=== PATIENT | female | born 1935 | race Two or more races ===

== ENCOUNTER 2018-12-16 19:57 | Inpatient (IN) | payer MEDICAID, OTHER ==
[~2018-12-16] VITALS: Ht 160 cm; Wt 69.0 kg
[2018-12-16] MEDS ORDERED: CHOL5000 PO (20:19)
[2018-12-16] MEDS ORDERED: MV-M1TAB3 PO (20:19)
[2018-12-16] MEDS ORDERED: SERT50TA28 PO (20:19)
[2018-12-16] MEDS ORDERED: AMLO10TA8 PO (20:19)
[2018-12-16] MEDS ORDERED: CALC0.25 PO (20:19)
[2018-12-16] MEDS ORDERED: LISI-167 PO (20:19)
[2018-12-16] MEDS ORDERED: ALBU0.63 NEB (20:19)
[2018-12-16] MEDS ORDERED: LEVO100T5 PO (20:19)
[2018-12-16] MEDS ORDERED: GABA300C10 PO (20:19)
[2018-12-16] MEDS ORDERED: DOXY25TA18 PO (20:19)
--- NOTE | 2018-12-16 20:26 | NUR ---
PT DIRECT TRANSFER FROM [facility] ED. FAMILY RPTS INCREASING WEAKNESS AND CONFUSION OVER PAST WEEK. PER CHART REC'D FROM [facility] IMPRESSION +PYELONEPHRITIS, STAGHORN KIDNEY STONES, URITIERAL STONE, RENAL INSUFFICIENCY. PT ON MONITORS, SOPHIA WICK CATHETER PLACED. VSS, ASSESSMENT NOTED. FAMILY AT BEDSIDE. CALL LIGHT W/I REACH. ER MD TO SEE.
[2018-12-16 21:40] LABS: BASOPHILS # (AUTO) 0.03 x10^3/uL (0-0.1); BASOPHILS % (AUTO) 0 % (0-1); EOSINOPHILS # (AUTO) 0.28 x10^3/uL (0-0.4); EOSINOPHILS % (AUTO) 4 % (1-7); LYMPHOCYTES # (AUTO) 2.31 x10^3/uL (1-3.4); LYMPHOCYTES % (AUTO) 34 % (22-44); MD NO; MEAN CORPUSCULAR HEMOGLOBIN 25.8 pg (27.0-34.8); MEAN CORPUSCULAR HGB CONC 31.6 g/dL (32.4-35.8); MEAN CORPUSCULAR VOLUME 81.6 fL (80-100); MEAN PLATELET VOLUME 9.1 fL (7.4-10.4); MONOCYTES # (AUTO) 0.32 x10^3/uL (0.2-0.8); MONOCYTES % (AUTO) 5 % (2-9); NEUTROPHILS % (AUTO) 56 % (42-75); PLATELET COUNT 181 x10^3/uL (130-400); RED BLOOD COUNT 4.07 x10^6/uL (3.82-5.3)
[2018-12-16 21:48] LABS: INTERNATIONAL NORMALIZED RATIO 1.14 (0.93-1.1)
[2018-12-16 21:50] LABS: ALBUMIN 3.3 g/dL (3.4-5.0); ANION GAP 7 mmol/L (5-15); CHLORIDE 112 mmol/L (98-107); CREATININE 1.55 mg/dL (0.55-1.02)
--- NOTE | 2018-12-16 23:25 | NUR ---
smh at bed side
--- NOTE | 2018-12-16 23:27 | NUR ---
daughter(Polina ) phone number #[phone]
--- NOTE | 2018-12-16 23:27 | NUR ---
updated poc to daughter and notified 's hospital rm number [id number]
[2018-12-16] MEDS ORDERED: SODIUM CHLORIDE FLUSH 10ML SYR IVF PRN (23:30)
--- NOTE | 2018-12-16 23:34 | NUR ---
GIVEN REPORT TO PRIETO JUDD AT [facility] FOR ADMIT EVAL NOW
[2018-12-16] MEDS ORDERED: LACTATED RINGERS 1,000 ML IV SCH (23:40)
[2018-12-17] MEDS ORDERED: TEMPLATE NON-FORMULARY MED. (Albuterol Sulfate (Albuterol Sulfate**) 1 VIAL) NEB PRN
[2018-12-17] MEDS ORDERED: ACETAMINOPHEN 325 MG TABLET PO PRN
[2018-12-17] MEDS ORDERED: ONDANSETRON 2MG/ML, 2ML IVPush PRN
[2018-12-17] MEDS: CEFTRIAXONE PMX 1GM/50ML 50 ML IV SCH (00:40)
[2018-12-17 00:41] VITALS: BP 124/66
[2018-12-17 03:48] VITALS: BP 129/67
[2018-12-17 05:24] LABS: BASOPHILS # (AUTO) 0.03 x10^3/uL (0-0.1); BASOPHILS % (AUTO) 1 % (0-1); EOSINOPHILS # (AUTO) 0.26 x10^3/uL (0-0.4); EOSINOPHILS % (AUTO) 4 % (1-7); LYMPHOCYTES # (AUTO) 1.74 x10^3/uL (1-3.4); LYMPHOCYTES % (AUTO) 29 % (22-44); MD NO; MEAN CORPUSCULAR HEMOGLOBIN 26.1 pg (27.0-34.8); MEAN CORPUSCULAR VOLUME 81.6 fL (80-100); MEAN PLATELET VOLUME 8.9 fL (7.4-10.4); MONOCYTES # (AUTO) 0.34 x10^3/uL (0.2-0.8); MONOCYTES % (AUTO) 6 % (2-9); NEUTROPHILS # (AUTO) 3.68 x10^3/uL (1.8-6.8); NEUTROPHILS % (AUTO) 61 % (42-75); PLATELET COUNT 168 x10^3/uL (130-400); RED BLOOD COUNT 3.84 x10^6/uL (3.82-5.3); RED CELL DISTRIBUTION WIDTH 16.7 % (9.6-15.2)
[2018-12-17 05:32] LABS: ANION GAP 5 mmol/L (5-15); CALCIUM 9.1 mg/dL (8.5-10.1); CHLORIDE 114 mmol/L (98-107)
[2018-12-17 05:33] LABS: CREATININE 1.57 mg/dL (0.55-1.02)
[2018-12-17 07:59] VITALS: BP 125/60
[2018-12-17] MEDS: CHOLECALCIFEROL 1,000 UNIT TABLET PO SCH ×2 (08:47→20:45)
[2018-12-17] MEDS: LEVOTHYROXINE 100 MCG TABLET PO SCH (08:47)
[2018-12-17] MEDS: CALCITRIOL 0.25 MCG CAPSULE PO SCH (08:47)
[2018-12-17] MEDS: AMLODIPINE 5 MG TABLET PO SCH (08:47)
[2018-12-17] MEDS: MULTIVITAMIN 1 TABLET PO SCH (08:47)
[2018-12-17] MEDS: SERTRALINE 50MG TABLET PO SCH (08:47)
[2018-12-17 14:17] VITALS: BP 101/66
[2018-12-17] MEDS: ENOXAPARIN 30 MG/0.3 ML SQ SCH (17:38)
[2018-12-17] MEDS ORDERED: ENOXAPARIN 40 MG/0.4 ML SQ SCH (18:00)
[2018-12-17 20:00] VITALS: BP 121/64
[2018-12-17] MEDS: GABAPENTIN 100 MG CAPSULE PO SCH (20:45)
[2018-12-17] MEDS: DOXYLAMINE 25MG TABLET PO SCH (20:45)
[2018-12-18] MEDS: CEFTRIAXONE PMX 1GM/50ML 50 ML IV SCH (00:11)
[2018-12-18 00:14] VITALS: BP 115/75
[2018-12-18] MEDS: LEVOTHYROXINE 100 MCG TABLET PO SCH (06:00)
[2018-12-18 06:14] LABS: ANION GAP 7 mmol/L (5-15); CALCIUM 9.2 mg/dL (8.5-10.1); CHLORIDE 113 mmol/L (98-107); CREATININE 1.86 mg/dL (0.55-1.02)
[2018-12-18 06:27] LABS: BASOPHILS # (AUTO) 0.04 x10^3/uL (0-0.1); BASOPHILS % (AUTO) 1 % (0-1); EOSINOPHILS # (AUTO) 0.43 x10^3/uL (0-0.4); EOSINOPHILS % (AUTO) 6 % (1-7); LYMPHOCYTES # (AUTO) 2.35 x10^3/uL (1-3.4); LYMPHOCYTES % (AUTO) 34 % (22-44); MD NO; MEAN CORPUSCULAR HEMOGLOBIN 25.9 pg (27.0-34.8); MEAN CORPUSCULAR VOLUME 80.8 fL (80-100); MEAN PLATELET VOLUME 9.4 fL (7.4-10.4); MONOCYTES # (AUTO) 0.44 x10^3/uL (0.2-0.8); MONOCYTES % (AUTO) 6 % (2-9); NEUTROPHILS # (AUTO) 3.67 x10^3/uL (1.8-6.8); NEUTROPHILS % (AUTO) 53 % (42-75); PLATELET COUNT 151 x10^3/uL (130-400); RED BLOOD COUNT 4.18 x10^6/uL (3.82-5.3); RED CELL DISTRIBUTION WIDTH 16.6 % (9.6-15.2)
[2018-12-18 06:50] VITALS: BP 127/79
[2018-12-18] MEDS ORDERED: ONDANSETRON 2MG/ML, 2ML IV PRN (09:00)
[2018-12-18] MEDS ORDERED: MORPHINE SULFATE 4 MG/ML, 1ML IVPush PRN (09:00)
[2018-12-18] MEDS ORDERED: LABETALOL 5MG/ML, 20ML IV PRN (09:00)
[2018-12-18] MEDS ORDERED: FENTANYL PF 100 MCG/2ML IV PRN (09:00)
[2018-12-18] MEDS ORDERED: ACETAMINOPHEN 325 MG TABLET PO PRN (09:00)
[2018-12-18] MEDS ORDERED: METOCLOPRAMIDE 5 MG/ML, 2ML IV PRN (09:00)
[2018-12-18] MEDS ORDERED: OXYcodone 5 MG/5 ML ORAL.SOL UDC PO PRN (09:00)
[2018-12-18] MEDS ORDERED: hydrALAzine 20 MG/ML, 1ML IV PRN (09:00)
[2018-12-18] MEDS ORDERED: DEXAMETHASONE 4 MG/ML, 1ML ONE (09:15)
[2018-12-18] MEDS ORDERED: NEOSTIGMINE 1 MG/ML, 10ML ONE (09:15)
[2018-12-18] MEDS ORDERED: ROCURONIUM 10 MG/ML,10ML ONE (09:15)
[2018-12-18] MEDS ORDERED: ONDANSETRON 2MG/ML, 2ML ONE (09:15)
[2018-12-18] MEDS ORDERED: PROPOFOL 10 MG/ML, 20ML ONE (09:15)
[2018-12-18] MEDS: SERTRALINE 50MG TABLET PO SCH (13:35)
[2018-12-18] MEDS: CALCITRIOL 0.25 MCG CAPSULE PO SCH (13:35)
[2018-12-18] MEDS: MULTIVITAMIN 1 TABLET PO SCH (13:35)
[2018-12-18] MEDS: CHOLECALCIFEROL 1,000 UNIT TABLET PO SCH ×2 (13:35→21:26)
[2018-12-18] MEDS: AMLODIPINE 5 MG TABLET PO SCH (13:36)
[2018-12-18 14:28] VITALS: BP 96/54
[2018-12-18 16:30] LABS: CULTURE INDICATED? YES; MICROSCOPIC INDICATED
[2018-12-18 17:59] VITALS: BP 98/55
[2018-12-18] MEDS: ENOXAPARIN 30 MG/0.3 ML SQ SCH (18:00)
[2018-12-18 21:03] VITALS: BP 96/63
[2018-12-18] MEDS: GABAPENTIN 100 MG CAPSULE PO SCH (21:26)
[2018-12-18] MEDS: DOXYLAMINE 25MG TABLET PO SCH (21:26)
[2018-12-18 21:58] VITALS: BP 190/100
[2018-12-19] MEDS: CEFTRIAXONE PMX 1GM/50ML 50 ML IV SCH ×2 (00:09→23:49)
[2018-12-19 00:47] VITALS: BP 98/59
[2018-12-19 06:06] LABS: MEAN CORPUSCULAR HEMOGLOBIN 26.2 pg (27.0-34.8); MEAN CORPUSCULAR HGB CONC 32.5 g/dL (32.4-35.8); MEAN CORPUSCULAR VOLUME 80.6 fL (80-100); MEAN PLATELET VOLUME 10.3 fL (7.4-10.4); PLATELET COUNT 149 x10^3/uL (130-400); RED BLOOD COUNT 3.53 x10^6/uL (3.82-5.3); RED CELL DISTRIBUTION WIDTH 16.6 % (9.6-15.2)
[2018-12-19 06:13] LABS: CHLORIDE 111 mmol/L (98-107)
[2018-12-19 06:17] LABS: ANION GAP 9 mmol/L (5-15); CALCIUM 9.1 mg/dL (8.5-10.1); CREATININE 1.77 mg/dL (0.55-1.02)
[2018-12-19 06:41] LABS: BASOPHILS # (AUTO) 0.07 x10^3/uL (0-0.1); BASOPHILS % (AUTO) 1 % (0-1); EOSINOPHILS # (AUTO) 0.03 x10^3/uL (0-0.4); EOSINOPHILS % (AUTO) 0 % (1-7); LYMPHOCYTES # (AUTO) 1.44 x10^3/uL (1-3.4); LYMPHOCYTES % (AUTO) 21 % (22-44); MD SCAN; MONOCYTES # (AUTO) 0.35 x10^3/uL (0.2-0.8); MONOCYTES % (AUTO) 5 % (2-9); NEUTROPHILS # (AUTO) 5.02 x10^3/uL (1.8-6.8); NEUTROPHILS % (AUTO) 73 % (42-75)
[2018-12-19 08:00] VITALS: BP 98/60
[2018-12-19] MEDS: AMLODIPINE 5 MG TABLET PO SCH (09:00)
[2018-12-19] MEDS: MULTIVITAMIN 1 TABLET PO SCH (10:27)
[2018-12-19] MEDS: CALCITRIOL 0.25 MCG CAPSULE PO SCH (10:27)
[2018-12-19] MEDS: SERTRALINE 50MG TABLET PO SCH (10:28)
[2018-12-19] MEDS: CHOLECALCIFEROL 1,000 UNIT TABLET PO SCH ×2 (10:28→21:35)
[2018-12-19] MEDS: LEVOTHYROXINE 100 MCG TABLET PO SCH (10:28)
[2018-12-19 18:07] VITALS: BP 112/70
[2018-12-19] MEDS: ENOXAPARIN 30 MG/0.3 ML SQ SCH (18:18)
[2018-12-19 19:42] VITALS: BP 95/57
[2018-12-19] MEDS: DOXYLAMINE 25MG TABLET PO SCH (21:35)
[2018-12-19] MEDS: GABAPENTIN 100 MG CAPSULE PO SCH (21:35)
[2018-12-20 00:24] VITALS: BP 98/62
[2018-12-20 04:56] LABS: ALBUMIN 2.9 g/dL (3.4-5.0); CHLORIDE 109 mmol/L (98-107); CREATININE 1.63 mg/dL (0.55-1.02)
[2018-12-20 05:40] LABS: ANION GAP 10 mmol/L (5-15)
[2018-12-20] MEDS: SERTRALINE 50MG TABLET PO SCH (08:25)
[2018-12-20] MEDS: LEVOTHYROXINE 100 MCG TABLET PO SCH (08:25)
[2018-12-20] MEDS: CHOLECALCIFEROL 1,000 UNIT TABLET PO SCH ×2 (08:25→20:26)
[2018-12-20] MEDS: MULTIVITAMIN 1 TABLET PO SCH (08:25)
[2018-12-20] MEDS: CALCITRIOL 0.25 MCG CAPSULE PO SCH (08:25)
[2018-12-20] MEDS: AMLODIPINE 5 MG TABLET PO SCH (08:25)
[2018-12-20 09:12] VITALS: BP 112/66
[2018-12-20 10:57] VITALS: BP 103/68
[2018-12-20 12:19] VITALS: BP 104/63
[2018-12-20] MEDS: SODIUM CHLORIDE 0.9% 1,000 ML IV SCH (14:14)
[2018-12-20] MEDS: ENOXAPARIN 30 MG/0.3 ML SQ SCH (17:19)
[2018-12-20] MEDS: DOCUSATE 100 MG CAPSULE PO PRN (20:25)
[2018-12-20] MEDS: GABAPENTIN 100 MG CAPSULE PO SCH (20:26)
[2018-12-20] MEDS: DOXYLAMINE 25MG TABLET PO SCH (20:26)
[2018-12-20 21:00] VITALS: BP 103/68
[2018-12-21 00:42] VITALS: BP 97/58
[2018-12-21] MEDS: CEFTRIAXONE PMX 1GM/50ML 50 ML IV SCH (00:54)
[2018-12-21 01:36] VITALS: BP 97/58
[2018-12-21 06:43] LABS: ALBUMIN 2.7 g/dL (3.4-5.0); ANION GAP 8 mmol/L (5-15); CALCIUM 8.5 mg/dL (8.5-10.1); CHLORIDE 106 mmol/L (98-107)
[2018-12-21 06:46] LABS: ALANINE AMINOTRANSFERASE 63 U/L (12-78); ALKALINE PHOSPHATASE 55 U/L (45-117); BILIRUBIN,TOTAL 0.2 mg/dL (0.2-1.0); TOTAL PROTEIN 5.8 g/dL (6.4-8.2)
[2018-12-21 07:48] VITALS: BP 107/69
[2018-12-21] MEDS: MULTIVITAMIN 1 TABLET PO SCH (09:03)
[2018-12-21] MEDS: CHOLECALCIFEROL 1,000 UNIT TABLET PO SCH ×2 (09:03→20:37)
[2018-12-21] MEDS: SERTRALINE 50MG TABLET PO SCH (09:06)
[2018-12-21] MEDS: AMLODIPINE 5 MG TABLET PO SCH (09:06)
[2018-12-21] MEDS: LEVOTHYROXINE 100 MCG TABLET PO SCH (09:06)
[2018-12-21] MEDS: CALCITRIOL 0.25 MCG CAPSULE PO SCH (09:06)
[2018-12-21] MEDS: SODIUM CHLORIDE 0.9% 1,000 ML IV SCH (09:07)
[2018-12-21] MEDS ORDERED: FENTANYL PF 250 MCG/5ML ONE (16:21)
[2018-12-21] MEDS ORDERED: PROPOFOL 10 MG/ML, 20ML ONE (16:31)
[2018-12-21] MEDS ORDERED: ONDANSETRON 2MG/ML, 2ML ONE (16:31)
[2018-12-21] MEDS ORDERED: PROMETHAZINE 25 MG SUPP PR PRN (17:00)
[2018-12-21] MEDS ORDERED: PROMETHAZINE 12.5 MG SUPP PR PRN (17:00)
[2018-12-21] MEDS ORDERED: PROMETHAZINE 25 MG/ML, 1ML IV PRN (17:00)
[2018-12-21] MEDS ORDERED: EPHEDRINE 50 MG/ML, 1ML IM PRN (17:00)
[2018-12-21] MEDS ORDERED: MIDAZOLAM 1 MG/ML, 2ML IV PRN (17:00)
[2018-12-21] MEDS ORDERED: FENTANYL PF 100 MCG/2ML IV PRN (17:00)
[2018-12-21] MEDS ORDERED: MORPHINE SULFATE 4 MG/ML, 1ML IVPush PRN (17:00)
[2018-12-21] MEDS ORDERED: ONDANSETRON 2MG/ML, 2ML IV PRN (17:00)
[2018-12-21] MEDS ORDERED: OXYcodone 5 MG/5 ML ORAL.SOL UDC PO PRN (17:00)
[2018-12-21] MEDS ORDERED: OXYcodone 5 MG/5 ML ORAL.SOL UDC ONE (17:48)
[2018-12-21 20:26] VITALS: BP 113/76
[2018-12-21] MEDS: ENOXAPARIN 30 MG/0.3 ML SQ SCH (20:27)
[2018-12-21] MEDS: GABAPENTIN 100 MG CAPSULE PO SCH (20:37)
[2018-12-21] MEDS: DOXYLAMINE 25MG TABLET PO SCH (20:37)
[2018-12-22] MEDS: CEFTRIAXONE PMX 1GM/50ML 50 ML IV SCH (00:40)
[2018-12-22 01:14] VITALS: BP 100/64
[2018-12-22] MEDS: SODIUM CHLORIDE 0.9% 1,000 ML IV SCH ×2 (04:02→17:55)
[2018-12-22 04:19] VITALS: BP 107/65
[2018-12-22 06:49] VITALS: BP 101/64
[2018-12-22 08:41] LABS: ALBUMIN 2.6 g/dL (3.4-5.0); ANION GAP 5 mmol/L (5-15); CALCIUM 8.4 mg/dL (8.5-10.1); CHLORIDE 109 mmol/L (98-107); CREATININE 1.25 mg/dL (0.55-1.02)
[2018-12-22] MEDS: CHOLECALCIFEROL 1,000 UNIT TABLET PO SCH ×2 (08:41→20:42)
[2018-12-22] MEDS: SERTRALINE 50MG TABLET PO SCH (08:41)
[2018-12-22] MEDS: CALCITRIOL 0.25 MCG CAPSULE PO SCH (08:41)
[2018-12-22] MEDS: MULTIVITAMIN 1 TABLET PO SCH (08:41)
[2018-12-22] MEDS: LEVOTHYROXINE 100 MCG TABLET PO SCH (08:41)
[2018-12-22 09:34] LABS: BASOPHILS # (AUTO) 0.04 x10^3/uL (0-0.1); BASOPHILS % (AUTO) 1 % (0-1); EOSINOPHILS # (AUTO) 0.29 x10^3/uL (0-0.4); EOSINOPHILS % (AUTO) 5 % (1-7); LYMPHOCYTES # (AUTO) 1.75 x10^3/uL (1-3.4); LYMPHOCYTES % (AUTO) 30 % (22-44); MD NO; MEAN CORPUSCULAR HEMOGLOBIN 25.4 pg (27.0-34.8); MEAN CORPUSCULAR HGB CONC 30.9 g/dL (32.4-35.8); MEAN PLATELET VOLUME 10.7 fL (7.4-10.4); MONOCYTES # (AUTO) 0.43 x10^3/uL (0.2-0.8); MONOCYTES % (AUTO) 7 % (2-9); NEUTROPHILS # (AUTO) 3.32 x10^3/uL (1.8-6.8); NEUTROPHILS % (AUTO) 57 % (42-75); PLATELET COUNT 164 x10^3/uL (130-400); RED BLOOD COUNT 3.76 x10^6/uL (3.82-5.3); RED CELL DISTRIBUTION WIDTH 16.5 % (9.6-15.2)
[2018-12-22 12:56] VITALS: BP 108/69
[2018-12-22] MEDS: ENOXAPARIN 30 MG/0.3 ML SQ SCH (17:52)
[2018-12-22] MEDS: GABAPENTIN 100 MG CAPSULE PO SCH (20:42)
[2018-12-22] MEDS: DOXYLAMINE 25MG TABLET PO SCH (20:42)
[2018-12-22 22:45] VITALS: BP 115/67
[2018-12-23] MEDS: CEFTRIAXONE PMX 1GM/50ML 50 ML IV SCH ×2 (00:32→23:56)
[2018-12-23 03:25] VITALS: BP 106/71
[2018-12-23 06:08] LABS: BASOPHILS # (AUTO) 0.03 x10^3/uL (0-0.1); BASOPHILS % (AUTO) 1 % (0-1); EOSINOPHILS # (AUTO) 0.26 x10^3/uL (0-0.4); EOSINOPHILS % (AUTO) 5 % (1-7); LYMPHOCYTES # (AUTO) 1.78 x10^3/uL (1-3.4); LYMPHOCYTES % (AUTO) 34 % (22-44); MD NO; MEAN CORPUSCULAR HEMOGLOBIN 26.5 pg (27.0-34.8); MEAN CORPUSCULAR HGB CONC 32.4 g/dL (32.4-35.8); MEAN CORPUSCULAR VOLUME 81.7 fL (80-100); MEAN PLATELET VOLUME 9.8 fL (7.4-10.4); MONOCYTES # (AUTO) 0.36 x10^3/uL (0.2-0.8); MONOCYTES % (AUTO) 7 % (2-9); NEUTROPHILS # (AUTO) 2.83 x10^3/uL (1.8-6.8); NEUTROPHILS % (AUTO) 54 % (42-75); PLATELET COUNT 168 x10^3/uL (130-400); RED BLOOD COUNT 3.38 x10^6/uL (3.82-5.3); RED CELL DISTRIBUTION WIDTH 16.8 % (9.6-15.2)
[2018-12-23 06:21] LABS: ALBUMIN 2.4 g/dL (3.4-5.0); ANION GAP 6 mmol/L (5-15); CALCIUM 8.2 mg/dL (8.5-10.1); CHLORIDE 110 mmol/L (98-107); CREATININE 1.15 mg/dL (0.55-1.02)
[2018-12-23 07:46] VITALS: BP 115/62
[2018-12-23] MEDS: SERTRALINE 50MG TABLET PO SCH (10:16)
[2018-12-23] MEDS: MULTIVITAMIN 1 TABLET PO SCH (10:16)
[2018-12-23] MEDS: LEVOTHYROXINE 100 MCG TABLET PO SCH (10:16)
[2018-12-23] MEDS: CALCITRIOL 0.25 MCG CAPSULE PO SCH (10:16)
[2018-12-23] MEDS: SODIUM CHLORIDE 0.9% 1,000 ML IV SCH (10:17)
[2018-12-23] MEDS: CHOLECALCIFEROL 1,000 UNIT TABLET PO SCH ×2 (10:17→20:28)
[2018-12-23] MEDS: DOCUSATE 100 MG CAPSULE PO PRN (10:23)
[2018-12-23 14:02] VITALS: BP 115/73
--- NOTE | 2018-12-23 16:56 | NUR ---
Green activity sheet posted recommending pt be transferred to chair OR be in chair position in bed 3x/day. Violetta MOREAU, magali. Addendum: 12/23/18 at 1656 by Billy Haddad PT Amended: Links added.
[2018-12-23] MEDS: ENOXAPARIN 40 MG/0.4 ML SQ SCH (18:00)
[2018-12-23 20:00] VITALS: BP 157/82
[2018-12-23] MEDS: GABAPENTIN 100 MG CAPSULE PO SCH (20:28)
[2018-12-23] MEDS: DOXYLAMINE 25MG TABLET PO SCH (20:28)
[2018-12-24 02:42] VITALS: BP 127/73
[2018-12-24] MEDS: SODIUM CHLORIDE 0.9% 1,000 ML IV SCH ×2 (04:23→18:20)
[2018-12-24 05:58] LABS: BASOPHILS # (AUTO) 0.04 x10^3/uL (0-0.1); BASOPHILS % (AUTO) 1 % (0-1); EOSINOPHILS # (AUTO) 0.28 x10^3/uL (0-0.4); EOSINOPHILS % (AUTO) 6 % (1-7); LYMPHOCYTES # (AUTO) 1.73 x10^3/uL (1-3.4); LYMPHOCYTES % (AUTO) 35 % (22-44); MD NO; MEAN CORPUSCULAR HEMOGLOBIN 26.4 pg (27.0-34.8); MEAN CORPUSCULAR HGB CONC 32.5 g/dL (32.4-35.8); MEAN CORPUSCULAR VOLUME 81.3 fL (80-100); MEAN PLATELET VOLUME 9.5 fL (7.4-10.4); MONOCYTES # (AUTO) 0.36 x10^3/uL (0.2-0.8); MONOCYTES % (AUTO) 7 % (2-9); NEUTROPHILS # (AUTO) 2.52 x10^3/uL (1.8-6.8); NEUTROPHILS % (AUTO) 51 % (42-75); PLATELET COUNT 171 x10^3/uL (130-400); RED BLOOD COUNT 3.41 x10^6/uL (3.82-5.3)
[2018-12-24 06:03] LABS: ALBUMIN 2.6 g/dL (3.4-5.0); ANION GAP 4 mmol/L (5-15); CALCIUM 8.4 mg/dL (8.5-10.1); CHLORIDE 110 mmol/L (98-107); CREATININE 1.13 mg/dL (0.55-1.02)
[2018-12-24 08:00] VITALS: BP 117/74
[2018-12-24] MEDS: MULTIVITAMIN 1 TABLET PO SCH (09:00)
[2018-12-24] MEDS: CHOLECALCIFEROL 1,000 UNIT TABLET PO SCH ×2 (09:39→20:13)
[2018-12-24] MEDS: CALCITRIOL 0.25 MCG CAPSULE PO SCH (09:39)
[2018-12-24] MEDS: SERTRALINE 50MG TABLET PO SCH (09:39)
[2018-12-24] MEDS: LEVOTHYROXINE 100 MCG TABLET PO SCH (09:39)
[2018-12-24 12:00] VITALS: BP 121/77
[2018-12-24] MEDS: ENOXAPARIN 40 MG/0.4 ML SQ SCH (18:00)
[2018-12-24 19:09] VITALS: BP 126/73
[2018-12-24] MEDS: DOXYLAMINE 25MG TABLET PO SCH (20:13)
[2018-12-24] MEDS: GABAPENTIN 100 MG CAPSULE PO SCH (20:21)
[2018-12-24] MEDS: CEFTRIAXONE PMX 1GM/50ML 50 ML IV SCH (23:41)
[2018-12-25 01:46] VITALS: BP 149/76
[2018-12-25 07:51] VITALS: BP 127/77
[2018-12-25] MEDS: LEVOTHYROXINE 100 MCG TABLET PO SCH (08:26)
[2018-12-25] MEDS: CHOLECALCIFEROL 1,000 UNIT TABLET PO SCH ×2 (08:26→20:34)
[2018-12-25] MEDS: SODIUM CHLORIDE 0.9% 1,000 ML IV SCH ×2 (08:26→20:36)
[2018-12-25] MEDS: MULTIVITAMIN 1 TABLET PO SCH (08:26)
[2018-12-25] MEDS: CALCITRIOL 0.25 MCG CAPSULE PO SCH (08:26)
[2018-12-25] MEDS: SERTRALINE 50MG TABLET PO SCH (08:27)
[2018-12-25 13:31] VITALS: BP 140/65
[2018-12-25] MEDS: ENOXAPARIN 40 MG/0.4 ML SQ SCH (17:40)
[2018-12-25] MEDS: GABAPENTIN 100 MG CAPSULE PO SCH (20:34)
[2018-12-25] MEDS: DOXYLAMINE 25MG TABLET PO SCH (20:34)
[2018-12-25 21:12] VITALS: BP 148/81
[2018-12-26] MEDS: CEFTRIAXONE PMX 1GM/50ML 50 ML IV SCH (00:36)
[2018-12-26 01:30] VITALS: BP 126/77
[2018-12-26 07:03] VITALS: BP 147/80
[2018-12-26] MEDS: CALCITRIOL 0.25 MCG CAPSULE PO SCH (09:02)
[2018-12-26] MEDS: CHOLECALCIFEROL 1,000 UNIT TABLET PO SCH ×2 (09:03→19:58)
[2018-12-26] MEDS: MULTIVITAMIN 1 TABLET PO SCH (09:03)
[2018-12-26] MEDS: LEVOTHYROXINE 100 MCG TABLET PO SCH (09:04)
[2018-12-26] MEDS: SERTRALINE 50MG TABLET PO SCH (09:05)
[2018-12-26] MEDS: SODIUM CHLORIDE 0.9% 1,000 ML IV SCH (09:05)
[2018-12-26 12:22] VITALS: BP 131/80
[2018-12-26] MEDS: DOCUSATE 100 MG CAPSULE PO PRN (14:17)
[2018-12-26] MEDS: D5%-0.9% NACL 1,000 ML IV SCH (14:18)
[2018-12-26] MEDS: ENOXAPARIN 40 MG/0.4 ML SQ SCH (18:29)
[2018-12-26] MEDS: DOXYLAMINE 25MG TABLET PO SCH (19:58)
[2018-12-26] MEDS: GABAPENTIN 100 MG CAPSULE PO SCH (19:59)
[2018-12-26 20:10] VITALS: BP 149/82
[2018-12-27 00:45] VITALS: BP 130/75
[2018-12-27] MEDS: D5%-0.9% NACL 1,000 ML IV SCH ×2 (03:50→16:43)
[2018-12-27 04:30] LABS: BASOPHILS # (AUTO) 0.04 x10^3/uL (0-0.1); BASOPHILS % (AUTO) 1 % (0-1); EOSINOPHILS # (AUTO) 0.31 x10^3/uL (0-0.4); EOSINOPHILS % (AUTO) 6 % (1-7); LYMPHOCYTES # (AUTO) 2.12 x10^3/uL (1-3.4); LYMPHOCYTES % (AUTO) 42 % (22-44); MD NO; MEAN CORPUSCULAR HEMOGLOBIN 26.3 pg (27.0-34.8); MEAN CORPUSCULAR HGB CONC 31.9 g/dL (32.4-35.8); MEAN CORPUSCULAR VOLUME 82.5 fL (80-100); MEAN PLATELET VOLUME 9.7 fL (7.4-10.4); MONOCYTES # (AUTO) 0.37 x10^3/uL (0.2-0.8); MONOCYTES % (AUTO) 7 % (2-9); NEUTROPHILS # (AUTO) 2.25 x10^3/uL (1.8-6.8); NEUTROPHILS % (AUTO) 44 % (42-75); PLATELET COUNT 180 x10^3/uL (130-400); RED BLOOD COUNT 3.57 x10^6/uL (3.82-5.3); RED CELL DISTRIBUTION WIDTH 17.3 % (9.6-15.2)
[2018-12-27 04:37] LABS: ALBUMIN 2.6 g/dL (3.4-5.0); ANION GAP 5 mmol/L (5-15); CALCIUM 8.5 mg/dL (8.5-10.1); CHLORIDE 113 mmol/L (98-107); CREATININE 1.11 mg/dL (0.55-1.02)
[2018-12-27] MEDS ORDERED: MAGNESIUM SULFATE PMX 2GM/50ML 50 ML IV ONE (05:30)
[2018-12-27] MEDS: CALCITRIOL 0.25 MCG CAPSULE PO SCH (08:10)
[2018-12-27] MEDS: MULTIVITAMIN 1 TABLET PO SCH (08:10)
[2018-12-27] MEDS: CHOLECALCIFEROL 1,000 UNIT TABLET PO SCH ×2 (08:10→21:18)
[2018-12-27] MEDS: SERTRALINE 50MG TABLET PO SCH (08:10)
[2018-12-27] MEDS: LEVOTHYROXINE 100 MCG TABLET PO SCH (08:10)
[2018-12-27] MEDS: POTASSIUM CHLORIDE 20 MEQ TAB.ER.PRT PO SCH ×2 (08:10→16:41)
[2018-12-27 09:10] VITALS: BP 154/75
[2018-12-27 12:10] VITALS: BP 134/83
[2018-12-27] MEDS: ENOXAPARIN 40 MG/0.4 ML SQ SCH (16:44)
[2018-12-27 18:57] VITALS: BP 160/75
[2018-12-27] MEDS: GABAPENTIN 100 MG CAPSULE PO SCH (21:18)
[2018-12-27] MEDS: DOXYLAMINE 25MG TABLET PO SCH (21:19)
[2018-12-28 00:20] VITALS: BP 153/71
[2018-12-28] MEDS: D5%-0.9% NACL 1,000 ML IV SCH ×2 (06:40→19:52)
[2018-12-28 08:00] VITALS: BP 156/84
[2018-12-28] MEDS: CHOLECALCIFEROL 1,000 UNIT TABLET PO SCH ×2 (08:25→21:28)
[2018-12-28] MEDS: LEVOTHYROXINE 100 MCG TABLET PO SCH (08:25)
[2018-12-28] MEDS: SERTRALINE 50MG TABLET PO SCH (08:25)
[2018-12-28] MEDS: CALCITRIOL 0.25 MCG CAPSULE PO SCH (08:25)
[2018-12-28] MEDS: MULTIVITAMIN 1 TABLET PO SCH (08:25)
[2018-12-28 14:00] VITALS: BP 173/82
[2018-12-28 17:30] VITALS: BP 142/70
[2018-12-28 19:32] VITALS: BP 162/80
[2018-12-28] MEDS: GABAPENTIN 100 MG CAPSULE PO SCH (21:27)
[2018-12-28] MEDS: DOXYLAMINE 25MG TABLET PO SCH (21:36)
[2018-12-29 00:12] VITALS: BP 133/75
[2018-12-29 08:02] VITALS: BP 133/83
[2018-12-29] MEDS: SERTRALINE 50MG TABLET PO SCH (09:38)
[2018-12-29] MEDS: LEVOTHYROXINE 100 MCG TABLET PO SCH (09:39)
[2018-12-29] MEDS: MULTIVITAMIN 1 TABLET PO SCH (09:39)
[2018-12-29] MEDS: CALCITRIOL 0.25 MCG CAPSULE PO SCH (09:40)
[2018-12-29] MEDS: CHOLECALCIFEROL 1,000 UNIT TABLET PO SCH ×2 (09:40→20:08)
[2018-12-29 12:06] VITALS: BP 154/91
[2018-12-29 19:10] VITALS: BP 152/78
[2018-12-29] MEDS: GABAPENTIN 100 MG CAPSULE PO SCH (20:09)
[2018-12-29] MEDS: DOXYLAMINE 25MG TABLET PO SCH (20:09)
[2018-12-30 00:01] VITALS: BP 145/84
[2018-12-30 08:06] VITALS: BP 113/74
[2018-12-30] MEDS: DOCUSATE 100 MG CAPSULE PO PRN (08:30)
[2018-12-30] MEDS: CALCITRIOL 0.25 MCG CAPSULE PO SCH (08:30)
[2018-12-30] MEDS: SERTRALINE 50MG TABLET PO SCH (08:30)
[2018-12-30] MEDS: LEVOTHYROXINE 100 MCG TABLET PO SCH (08:33)
[2018-12-30] MEDS: MULTIVITAMIN 1 TABLET PO SCH (08:33)
[2018-12-30] MEDS: CHOLECALCIFEROL 1,000 UNIT TABLET PO SCH ×2 (08:33→20:53)
[2018-12-30 13:58] VITALS: BP 118/78
[2018-12-30 19:32] VITALS: BP 98/66
[2018-12-30] MEDS: DOXYLAMINE 25MG TABLET PO SCH (20:53)
[2018-12-30] MEDS: GABAPENTIN 100 MG CAPSULE PO SCH (20:53)
[2018-12-31 00:19] VITALS: BP 119/80
[2018-12-31 05:35] LABS: BASOPHILS # (AUTO) 0.02 x10^3/uL (0-0.1); BASOPHILS % (AUTO) 0 % (0-1); EOSINOPHILS # (AUTO) 0.41 x10^3/uL (0-0.4); EOSINOPHILS % (AUTO) 7 % (1-7); LYMPHOCYTES # (AUTO) 2.07 x10^3/uL (1-3.4); LYMPHOCYTES % (AUTO) 36 % (22-44); MD NO; MEAN CORPUSCULAR HEMOGLOBIN 25.5 pg (27.0-34.8); MEAN CORPUSCULAR HGB CONC 31.5 g/dL (32.4-35.8); MEAN CORPUSCULAR VOLUME 80.9 fL (80-100); MEAN PLATELET VOLUME 9.3 fL (7.4-10.4); MONOCYTES # (AUTO) 0.41 x10^3/uL (0.2-0.8); MONOCYTES % (AUTO) 7 % (2-9); NEUTROPHILS # (AUTO) 2.84 x10^3/uL (1.8-6.8); NEUTROPHILS % (AUTO) 50 % (42-75); PLATELET COUNT 203 x10^3/uL (130-400); RED BLOOD COUNT 3.87 x10^6/uL (3.82-5.3)
[2018-12-31 05:45] LABS: ANION GAP 8 mmol/L (5-15); CALCIUM 9.6 mg/dL (8.5-10.1); CHLORIDE 108 mmol/L (98-107)
[2018-12-31 05:46] LABS: CREATININE 1.63 mg/dL (0.55-1.02)
[2018-12-31 07:51] VITALS: BP 110/71
[2018-12-31] MEDS: SERTRALINE 50MG TABLET PO SCH (08:13)
[2018-12-31] MEDS: MULTIVITAMIN 1 TABLET PO SCH (08:13)
[2018-12-31] MEDS: CALCITRIOL 0.25 MCG CAPSULE PO SCH (08:13)
[2018-12-31] MEDS: CHOLECALCIFEROL 1,000 UNIT TABLET PO SCH ×2 (08:13→22:00)
[2018-12-31] MEDS: LEVOTHYROXINE 100 MCG TABLET PO SCH (08:14)
[2018-12-31] MEDS: SODIUM CHLORIDE 0.9% 1,000 ML IV SCH ×2 (09:00→23:14)
[2018-12-31 13:57] VITALS: BP 113/80
[2018-12-31 19:34] VITALS: BP 118/76
[2018-12-31] MEDS: DOXYLAMINE 25MG TABLET PO SCH (22:00)
[2018-12-31] MEDS: GABAPENTIN 100 MG CAPSULE PO SCH (22:00)
[2018-12-31 23:55] LABS: ANION GAP 10 mmol/L (5-15); CALCIUM 9.5 mg/dL (8.5-10.1); CHLORIDE 107 mmol/L (98-107); CREATININE 1.89 mg/dL (0.55-1.02)
[2019-01-01 01:07] VITALS: BP 100/61
[2019-01-01] MEDS: LEVOTHYROXINE 100 MCG TABLET PO SCH (06:04)
[2019-01-01 06:19] LABS: ALBUMIN 2.9 g/dL (3.4-5.0); ANION GAP 7 mmol/L (5-15); CALCIUM 9.5 mg/dL (8.5-10.1); CHLORIDE 111 mmol/L (98-107); CREATININE 1.71 mg/dL (0.55-1.02)
[2019-01-01] MEDS: SODIUM CHLORIDE 0.9% 1,000 ML IV SCH ×2 (07:40→18:49)
[2019-01-01] MEDS: MULTIVITAMIN 1 TABLET PO SCH (07:42)
[2019-01-01] MEDS: SERTRALINE 50MG TABLET PO SCH (07:42)
[2019-01-01] MEDS: CALCITRIOL 0.25 MCG CAPSULE PO SCH (07:42)
[2019-01-01] MEDS: CHOLECALCIFEROL 1,000 UNIT TABLET PO SCH ×2 (07:43→20:49)
[2019-01-01 08:00] VITALS: BP 113/74
[2019-01-01 14:00] VITALS: BP 116/63
[2019-01-01 16:19] LABS: MICROSCOPIC INDICATED
[2019-01-01 16:59] LABS: CULTURE INDICATED? YES
[2019-01-01 19:12] VITALS: BP 157/80
[2019-01-01] MEDS: CEFTRIAXONE PMX 1GM/50ML 50 ML IV SCH (20:49)
[2019-01-01] MEDS: GABAPENTIN 100 MG CAPSULE PO SCH (20:49)
[2019-01-01] MEDS: DOXYLAMINE 25MG TABLET PO SCH (20:49)
[2019-01-02 01:17] VITALS: BP 112/71
[2019-01-02] MEDS: SODIUM CHLORIDE 0.9% 1,000 ML IV SCH ×2 (06:02→17:29)
[2019-01-02 06:22] LABS: ALBUMIN 2.7 g/dL (3.4-5.0); ANION GAP 6 mmol/L (5-15); CALCIUM 9.3 mg/dL (8.5-10.1); CHLORIDE 113 mmol/L (98-107); CREATININE 1.41 mg/dL (0.55-1.02)
[2019-01-02 08:10] VITALS: BP 146/81
[2019-01-02] MEDS: LEVOTHYROXINE 100 MCG TABLET PO SCH (10:19)
[2019-01-02] MEDS: MULTIVITAMIN 1 TABLET PO SCH (10:19)
[2019-01-02] MEDS: CALCITRIOL 0.25 MCG CAPSULE PO SCH (10:19)
[2019-01-02] MEDS: SERTRALINE 50MG TABLET PO SCH (10:20)
[2019-01-02] MEDS: CHOLECALCIFEROL 1,000 UNIT TABLET PO SCH ×2 (10:20→20:44)
[2019-01-02 14:18] VITALS: BP 146/86
[2019-01-02 19:20] VITALS: BP 147/72
[2019-01-02] MEDS: GABAPENTIN 100 MG CAPSULE PO SCH (20:44)
[2019-01-02] MEDS: DOXYLAMINE 25MG TABLET PO SCH (20:44)
[2019-01-02] MEDS: CEFTRIAXONE PMX 1GM/50ML 50 ML IV SCH (20:44)
[2019-01-03 00:55] VITALS: BP 146/83
[2019-01-03] MEDS: SODIUM CHLORIDE 0.9% 1,000 ML IV SCH ×2 (04:24→15:01)
[2019-01-03] MEDS: SERTRALINE 50MG TABLET PO SCH (08:52)
[2019-01-03] MEDS: MULTIVITAMIN 1 TABLET PO SCH (08:52)
[2019-01-03] MEDS: CALCITRIOL 0.25 MCG CAPSULE PO SCH (08:52)
[2019-01-03] MEDS: LEVOTHYROXINE 100 MCG TABLET PO SCH (08:52)
[2019-01-03] MEDS: CHOLECALCIFEROL 1,000 UNIT TABLET PO SCH ×2 (08:52→20:22)
[2019-01-03 09:07] VITALS: BP 166/81
[2019-01-03 14:49] VITALS: BP 146/80
[2019-01-03 19:22] VITALS: BP 142/83
[2019-01-03] MEDS: GABAPENTIN 100 MG CAPSULE PO SCH (20:21)
[2019-01-03] MEDS: CEFTRIAXONE PMX 1GM/50ML 50 ML IV SCH (20:21)
[2019-01-03] MEDS: DOXYLAMINE 25MG TABLET PO SCH (20:22)
[2019-01-04] MEDS: SODIUM CHLORIDE 0.9% 1,000 ML IV SCH ×2 (00:43→18:00)
[2019-01-04 01:30] VITALS: BP 146/86
[2019-01-04 06:26] LABS: BASOPHILS # (AUTO) 0.02 x10^3/uL (0-0.1); BASOPHILS % (AUTO) 1 % (0-1); EOSINOPHILS # (AUTO) 0.44 x10^3/uL (0-0.4); EOSINOPHILS % (AUTO) 9 % (1-7); LYMPHOCYTES # (AUTO) 1.72 x10^3/uL (1-3.4); LYMPHOCYTES % (AUTO) 34 % (22-44); MD NO; MEAN CORPUSCULAR HEMOGLOBIN 26.4 pg (27.0-34.8); MEAN CORPUSCULAR HGB CONC 32.6 g/dL (32.4-35.8); MEAN CORPUSCULAR VOLUME 80.8 fL (80-100); MEAN PLATELET VOLUME 8.9 fL (7.4-10.4); MONOCYTES # (AUTO) 0.46 x10^3/uL (0.2-0.8); MONOCYTES % (AUTO) 9 % (2-9); NEUTROPHILS # (AUTO) 2.41 x10^3/uL (1.8-6.8); NEUTROPHILS % (AUTO) 48 % (42-75); PLATELET COUNT 169 x10^3/uL (130-400); RED BLOOD COUNT 3.58 x10^6/uL (3.82-5.3); RED CELL DISTRIBUTION WIDTH 16.9 % (9.6-15.2)
[2019-01-04 06:34] LABS: ALBUMIN 2.8 g/dL (3.4-5.0); ANION GAP 5 mmol/L (5-15); CALCIUM 8.8 mg/dL (8.5-10.1); CHLORIDE 112 mmol/L (98-107); CREATININE 1.43 mg/dL (0.55-1.02)
[2019-01-04 07:30] VITALS: BP 153/80
[2019-01-04] MEDS: MULTIVITAMIN 1 TABLET PO SCH (09:35)
[2019-01-04] MEDS: CHOLECALCIFEROL 1,000 UNIT TABLET PO SCH ×2 (09:35→20:39)
[2019-01-04] MEDS: CALCITRIOL 0.25 MCG CAPSULE PO SCH (09:35)
[2019-01-04] MEDS: LEVOTHYROXINE 100 MCG TABLET PO SCH (09:36)
[2019-01-04 13:57] VITALS: BP 153/83
[2019-01-04 19:21] VITALS: BP 156/80
[2019-01-04] MEDS: SERTRALINE 50MG TABLET PO SCH (20:37)
[2019-01-04] MEDS: DOXYLAMINE 25MG TABLET PO SCH (20:38)
[2019-01-04] MEDS: GABAPENTIN 100 MG CAPSULE PO SCH (20:38)
[2019-01-04] MEDS: CEFTRIAXONE PMX 1GM/50ML 50 ML IV SCH (20:38)
[2019-01-05 03:41] VITALS: BP 150/84
[2019-01-05] MEDS: SODIUM CHLORIDE 0.9% 1,000 ML IV SCH (05:12)
[2019-01-05] MEDS: LEVOTHYROXINE 100 MCG TABLET PO SCH (05:12)
[2019-01-05] MEDS: CHOLECALCIFEROL 1,000 UNIT TABLET PO SCH ×2 (08:53→20:42)
[2019-01-05] MEDS: CALCITRIOL 0.25 MCG CAPSULE PO SCH (08:53)
[2019-01-05] MEDS: MULTIVITAMIN 1 TABLET PO SCH (08:54)
[2019-01-05 09:47] VITALS: BP 161/84
[2019-01-05] MEDS: CIPROFLOXACIN 500 MG TABLET PO SCH ×2 (13:28→20:41)
[2019-01-05 15:13] VITALS: BP 142/84
[2019-01-05 19:05] VITALS: BP 128/84
[2019-01-05] MEDS: SERTRALINE 50MG TABLET PO SCH (20:42)
[2019-01-05] MEDS: GABAPENTIN 100 MG CAPSULE PO SCH (20:42)
[2019-01-05] MEDS: DOXYLAMINE 25MG TABLET PO SCH (20:42)
[2019-01-06 01:42] VITALS: BP 131/78
[2019-01-06] MEDS: LEVOTHYROXINE 100 MCG TABLET PO SCH (05:41)
[2019-01-06 07:55] VITALS: BP 138/83
[2019-01-06] MEDS: MULTIVITAMIN 1 TABLET PO SCH (09:34)
[2019-01-06] MEDS: CIPROFLOXACIN 500 MG TABLET PO SCH ×2 (09:34→19:55)
[2019-01-06] MEDS: CHOLECALCIFEROL 1,000 UNIT TABLET PO SCH ×2 (09:34→19:56)
[2019-01-06] MEDS: CALCITRIOL 0.25 MCG CAPSULE PO SCH (09:34)
[2019-01-06 13:21] VITALS: BP 164/78
[2019-01-06] MEDS: SERTRALINE 50MG TABLET PO SCH (19:56)
[2019-01-06] MEDS: GABAPENTIN 100 MG CAPSULE PO SCH (19:56)
[2019-01-06] MEDS: DOXYLAMINE 25MG TABLET PO SCH (19:56)
[2019-01-07 03:07] VITALS: BP 142/77
[2019-01-07] MEDS: LEVOTHYROXINE 100 MCG TABLET PO SCH (06:05)
[2019-01-07 08:04] VITALS: BP 126/78
[2019-01-07] MEDS: MULTIVITAMIN 1 TABLET PO SCH (08:06)
[2019-01-07] MEDS: CIPROFLOXACIN 500 MG TABLET PO SCH (08:06)
[2019-01-07] MEDS: CALCITRIOL 0.25 MCG CAPSULE PO SCH (08:06)
[2019-01-07] MEDS: CHOLECALCIFEROL 1,000 UNIT TABLET PO SCH (08:06)
[2019-01-07 14:13] VITALS: BP 146/70
[2019-01-07 19:41] VITALS: BP 144/80
[2019-01-08] MEDS: CHOLECALCIFEROL 1,000 UNIT TABLET PO SCH ×3 (00:09→22:56)
[2019-01-08] MEDS: GABAPENTIN 100 MG CAPSULE PO SCH ×2 (00:09→22:56)
[2019-01-08] MEDS: DOXYLAMINE 25MG TABLET PO SCH ×2 (00:10→22:56)
[2019-01-08] MEDS: SERTRALINE 50MG TABLET PO SCH ×2 (00:10→22:56)
[2019-01-08] MEDS: CIPROFLOXACIN 500 MG TABLET PO SCH ×3 (00:10→22:56)
[2019-01-08] MEDS: LEVOTHYROXINE 100 MCG TABLET PO SCH (06:38)
[2019-01-08 07:11] VITALS: BP 139/79
[2019-01-08] MEDS: CALCITRIOL 0.25 MCG CAPSULE PO SCH (08:43)
[2019-01-08] MEDS: MULTIVITAMIN 1 TABLET PO SCH (08:43)
[2019-01-08 12:16] VITALS: BP 133/67
[2019-01-08 19:20] VITALS: BP 146/83
[2019-01-09 01:10] VITALS: BP 138/82
[2019-01-09] MEDS: LEVOTHYROXINE 100 MCG TABLET PO SCH (06:37)
[2019-01-09 07:59] VITALS: BP 126/78
[2019-01-09] MEDS: CHOLECALCIFEROL 1,000 UNIT TABLET PO SCH (09:26)
[2019-01-09] MEDS: CIPROFLOXACIN 500 MG TABLET PO SCH (09:27)
[2019-01-09] MEDS: CALCITRIOL 0.25 MCG CAPSULE PO SCH (09:27)
[2019-01-09] MEDS: MULTIVITAMIN 1 TABLET PO SCH (09:27)
[2019-01-09] MEDS ORDERED: CIPR500T87 PO (16:11)
[2019-01-09] MEDS ORDERED: ONDA4TAB7 PO (16:11)
[2019-01-09] MEDS ORDERED: DOCU-131 PO (16:11)
[2019-01-09 17:00] VITALS: BP 125/76
== END 2019-01-09 17:20 | disposition home or self-care (01) | DRG 661 ==
LOC: ED 23:07 → 4WST 23:13 → ED 23:41 → 4NOR 01-05 05:12
PROVIDERS: ADMIT Internal Medicine; ATTEND Hospitalist
PROC: 0T788DZ Dilation of Bilateral Ureters with Intraluminal Device, Via Natural or Artificial Opening Endoscopic (ICD-10-PCS; principal; 2018-12-18 09:00)
PROC: 0TC68ZZ Extirpation of Matter from Right Ureter, Via Natural or Artificial Opening Endoscopic (ICD-10-PCS; 2018-12-25)
PROC: 0T9B70Z Drainage of Bladder with Drainage Device, Via Natural or Artificial Opening (ICD-10-PCS; 2019-01-01)
DX: N13.6 Pyonephrosis (principal); N17.0 Acute kidney failure with tubular necrosis; K59.09 Other constipation; E78.5 Hyperlipidemia, unspecified; E89.0 Postprocedural hypothyroidism; N18.3 Chronic kidney disease, stage 3 (moderate); I12.9 Hypertensive chronic kidney disease with stage 1 through stage 4 chronic kidney disease, or unspecified chronic kidney disease; Z86.711 Personal history of pulmonary embolism; Z86.718 Personal history of other venous thrombosis and embolism; Z86.73 Personal history of transient ischemic attack (TIA), and cerebral infarction without residual deficits; Z87.442 Personal history of urinary calculi
CPT/HCPCS: 36415; 74018; 76000; 99285; J7042; 74176; 76770; 80048; 80053; 81001; 82040; 82360; 83605; 83735; 84100; 85025; 85610; 85730; 87040; 87077; 87086; 87186; 88300; 93005; G0378; J0696; J1100; J1650; J2405; J2704; J2710; J3010; C1758; C1769; C2617; J3475; J7030; J7120